=== PATIENT | female | born 1970 | race Caucasian/White ===

== ENCOUNTER 2017-04-14 15:01 | Emergency (ER) | payer OTHER ==
[2017-04-14 15:02] VITALS: BMI 27.3
[2017-04-14 15:28] VITALS: PULSE 80; O2SAT 100
[2017-04-14 16:15] LABS: BASO # 0.03 K/mm3 (0.0-2.0); BASO % 0.3 % (0.0-3.0); EOS # 0.1 (0.0-0.7); EOS % 0.4 % (1.5-5.0); GRAN # 7.48 (1.4-6.5); GRAN % 67.3 % (50.0-68.0); HEMATOCRIT 41.4 % (36.0-48.0); LYMPH # 2.9 (1.2-3.4); LYMPH % 25.7 % (22.0-35.0); MEAN CELL VOLUME 93.2 fl (80.0-105.0); MEAN CORPUSCULAR HEMOGLOBIN 32.4 pg (25.0-35.0); MEAN CORPUSCULAR HGB CONC 34.8 g/dl (31.0-37.0); MEAN PLATELET VOLUME 8.9 fl (7.0-11.0); MONO # 0.7 (0.1-0.6); MONO % 6.3 % (1.0-6.0); RED CELL DISTRIBUTION WIDTH 12.9 % (11.5-14.5); WHITE BLOOD COUNT 11.1 10^3/ul (4.5-11.0)
[2017-04-14 16:23] LABS: INR 1.14 (0.93-1.08); PARTIAL THROMBOPLASTIN TIME 33.1 Seconds (25.1-36.5)
[2017-04-14 16:27] LABS: ALB/GLOB RATIO 1.5 (1.1-1.8); ALKALINE PHOSPHATASE 76 U/L (38-126); ALT/SGPT 49 U/L (7-56); AST/SGOT 40 U/L (14-36); BILIRUBIN,TOTAL 0.5 mg/dL (0.2-1.3); BLOOD UREA NITROGEN 20 mg/dL (7-21); CARBON DIOXIDE 26 mmol/L (21-33); CHLORIDE 102 mmol/L (98-107); CHOLESTEROL 208 mg/dL (130-200); GFR AFRICAN-AMERICAN > 60; GLUCOSE,RANDOM 102 mg/dL (70-110); POTASSIUM 3.5 mmol/L (3.6-5.0); SODIUM 138 mmol/L (132-148); TOTAL PROTEIN 7.6 g/dL (5.8-8.3)
--- NOTE | 2017-04-14 16:27 | CT ---
PROCEDURE: CT HEAD WITHOUT CONTRAST. HISTORY: left facial numbness COMPARISON: None available. TECHNIQUE: Axial computed tomography images were obtained through the head/brain without intravenous contrast. Radiation dose: Total exam DLP = 726 mGy-cm. This CT exam was performed using one or more of the following dose reduction techniques: Automated exposure control, adjustment of the mA and/or kV according to patient size, and/or use of iterative reconstruction technique. FINDINGS: HEMORRHAGE: No intracranial hemorrhage. BRAIN: No mass effect or edema. No atrophy or chronic microvascular ischemic changes. VENTRICLES: Unremarkable. No hydrocephalus. CALVARIUM: Unremarkable. PARANASAL SINUSES: Unremarkable as visualized. No significant inflammatory changes. MASTOID AIR CELLS: Unremarkable as visualized. No inflammatory changes. OTHER FINDINGS: None. IMPRESSION: No acute finding
[2017-04-14 16:53] LABS: TROPONIN I < 0.01 ng/mL
--- NOTE | 2017-04-14 18:08 | ED PDOC ---
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 She denies headache, visual acuity change, focal weakness, nausea, vomiting, facial droop, dizziness, chest pain, any other complaint. Past Medical History - Provider Review Nursing Documentation Reviewed: Yes - Cardiac Hx Cardiac Disorders: Yes Hx Hypertension: Yes - Pulmonary Hx Respiratory Disorders: No - Neurological Hx Neurological Disorder: No - HEENT Hx HEENT Disorder: No - Renal Hx Renal Disorder: Yes Hx Kidney Stones: Yes Hx Neurogenic Bladder: No Hx Pyelonephritis: No Hx Renal Cancer: No Hx Renal Failure: No - Endocrine/Metabolic Hx Endocrine Disorders: No Hx Diabetes Insipidus: No Hx Diabetes Mellitus Type 1: No Hx Diabetes Mellitus Type 2: No Hx Hyperthyroidism: No - Hematological/Oncological Hx Blood Transfusions: No - Integumentary Hx Dermatological Disorder: No - Musculoskeletal/Rheumatological Hx Musculoskeletal Disorders: Yes Hx Falls: No Hx Spinal Stenosis: Yes (sx fusion) - Gastrointestinal Hx Gastrointestinal Disorders: Yes Hx Gastroesophageal Reflux: Yes - Genitourinary/Gynecological Hx Genitourinary Disorders: No - Psychiatric Hx Psychophysiologic Disorder: No Hx Substance Use: No - Surgical History Hx Hysterectomy: Yes (Partial) Hx Orthopedic Surgery: Yes (Left hip) - Anesthesia Hx Anesthesia Reactions: No Hx Malignant Hyperthermia: No Family/Social History - Physician Review Nursing Documentation Reviewed: Yes Family/Social History: Unknown Family HX Smoking Status: Current Some Days Smoker Hx Alcohol Use: Yes Frequency of alcohol use: Socially Hx Substance Use: No Allergies/Home Meds Allergies/Adverse Reactions: Allergies No Known Allergies Allergy (Verified 04/14/17 15:28) Home Medications: Home Meds Medication Instructions Recorded Confirmed Lisinopril/Hydrochlorothiazide 1 tab PO DAILY 04/27/16 04/14/17 [Lisinopril-Hctz 20-12.5 mg Tab] Review of Systems - Physician Review All systems were reviewed & negative as marked: Yes - Review of Systems Constitutional: Normal Eyes: Normal ENT: Normal Respiratory: Normal Cardiovascular: Normal Gastrointestinal: Normal Genitourinary Female: Normal Musculoskeletal: Normal Skin: Normal Neurological: Other (Right katie orbital paresthesia). absent: Headache, Dizziness, Focal Weakness, Speech Changes, Facial Droop Endocrine: Normal Hemo/Lymphatic: Normal Psychiatric: Normal Physical Exam Vital Signs Reviewed: Yes Vital Signs Temp Pulse Resp BP Pulse Ox 04/14/17 15:27 98.7 F 80 20 118/70 100 Temperature: Afebrile Blood Pressure: Normal Pulse: Regular Respiratory Rate: Normal Appearance: Positive for: Well-Appearing, Non-Toxic, Comfortable Pain Distress: None Mental Status: Positive for: Alert and Oriented X 3 - Systems Exam Head: Present: Atraumatic, Normocephalic Pupils: Present: PERRL Extroacular Muscles: Present: EOMI Conjunctiva: Present: Normal Mouth: Present: Moist Mucous Membranes Neck: Present: Normal Range of Motion Respiratory/Chest: Present: Clear to Auscultation, Good Air Exchange. No: Respiratory Distress, Accessory Muscle Use Cardiovascular: Present: Regular Rate and Rhythm, Normal S1, S2. No: Murmurs Abdomen: Present: Normal Bowel Sounds. No: Tenderness, Distention, Peritoneal Signs Back: Present: Normal Inspection Upper Extremity: Present: Normal Inspection. No: Cyanosis, Edema Lower Extremity: Present: Normal Inspection. No: Edema Neurological: Present: GCS=15, CN II-XII Intact, Speech Normal, Motor Func Grossly Intact, Normal Sensory Function, Normal Cerebellar Funct, Norm Deep Tendon Reflexes, Gait Normal, Memory Normal, Normal 2Pt Descrimination, Other ( No focal neurological deficit) Skin: Present: Warm, Dry, Normal Color. 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 Lab was reviewed and unremarkable with exception of the triglyceride and LDL. EKG was NSR @69bpm with no ST changes Head CT - Negative Result was DW the pt and the lipid profile result was given to the pt . She remained neurological stable in ED and will therefore be DC home to f/u with her PMD/Neuro for further outpt work up. she was also strongly advised to f/u with her PMD for management of her elevated triglyceride. Advised TRT ED for any new or worsening symptoms. - Lab Interpretations Lab Results: 04/14/17 16:00 04/14/17 16:00 Lab Results 04/14/17 16:00: Sodium 138, Potassium 3.5 L, Chloride 102, Carbon Dioxide 26, Anion Gap 14, BUN 20, Creatinine 0.8, Est GFR ( Amer) > 60, Est GFR (Non- Af Amer) > 60, Random Glucose 102, Calcium 10.0, Total Bilirubin 0.5, AST 40 H, ALT 49, Alkaline Phosphatase 76, Troponin I < 0.01, Total Protein 7.6, Albumin 4.5, Globulin 3.1, Albumin/Globulin Ratio 1.5, Triglycerides 306 H, Cholesterol 208 H, LDL Cholesterol Direct 144 H, HDL Cholesterol 40 04/14/17 16:00: PT 12.5, INR 1.14 H, APTT 33.1 04/14/17 16:00: WBC 11.1 H, RBC 4.44, Hgb 14.4, Hct 41.4, MCV 93.2, MCH 32.4, MCHC 34.8, RDW 12.9, Plt Count 354, MPV 8.9, Gran % 67.3, Lymph % (Auto) 25.7, [place] % (Auto) 6.3 H, Eos % (Auto) 0.4 L, Baso % (Auto) 0.3, Gran # 7.48 H, Lymph # 2.9, [place] # 0.7 H, Eos # 0.1, Baso # 0.03 - RAD Interpretation Radiology Orders: 04/14/17 15:47 HEAD W/O CONTRAST [CT] Stat Disposition/Present on Arrival - Present on Arrival Any Indicators Present on Arrival: No History of DVT/PE: No History of Uncontrolled Diabetes: No Urinary Catheter: No History of Decub. Ulcer: No History Surgical Site Infection Following: None - Disposition Have Diagnosis and Disposition been Completed?: Yes Diagnosis: Facial paresthesia Disposition: HOME/ ROUTINE Disposition Time: 18:10 Patient Plan: Discharge Condition: STABLE Discharge Instructions (ExitCare): Paresthesia (ED) Additional Instructions: Follow up with your doctor/Neurologist Return to ED for any new or worsening symptoms Referrals: Kayla Olsen MD [Primary Care Provider] - Follow up with primary Reginaldo Laguerre MD [Staff Provider] - Follow up with primary Oscar Amor DO [Doctor Osteopathy] - Follow up with primary Forms: [employer] (Arabic)
[2017-04-14 18:42] VITALS: BP 110/76; RESP 17; TEMP 98.6
--- NOTE | 2017-04-15 21:03 | CARD ---
APPROVED REPORT EKG Measurement Heart [id number] <Conclusion> Normal sinus rhythm Normal ECG
== END 2017-04-14 18:42 | disposition home or self-care (01) ==
LOC: ED 15:01
DX: R20.2 Paresthesia of skin (principal); I10 Essential (primary) hypertension; F17.210 Nicotine dependence, cigarettes, uncomplicated